=== PATIENT | female | born 1965 | race African-American/Black ===

== ENCOUNTER → 2020-05-17 | Outpatient (CLI) | payer OTHER ==
[~2020-05-17] MED LIST: FENTANYL CITRATE/PF 100MCG/2 ML INJ ONE; MIDAZOLAM HCL 2 MG/2 ML VIAL ONE
[2020-05-17 09:19] LABS: HEMOGLOBIN 13.8 g/dL (12.0-16.0)
[2020-05-17 09:32] LABS: INR 0.9; PROTHROMBIN TIME 12.6 seconds (11.9-14.5)
== END ==
LOC: US 08:52
PROVIDERS: ATTEND Internal Medicine Gastroenterology
DX: R94.5 Abnormal results of liver function studies (principal)
CPT/HCPCS: 36415; 47000; 76942; 85014; 85049; 85610; 85730; 88307; J2250; J3010; U0002; 88313